=== PATIENT | male | born 1970 | race African-American/Black ===

== ENCOUNTER 2018-11-01 11:58 | Emergency (ER) | payer MEDICAID ==
[~2018-11-01] VITALS: Ht 182.9 cm; Wt 80.0 kg
[2018-11-01] MEDS ORDERED: ACETAMINOPHEN 325MG TABLET PO ONE (13:30)
[2018-11-01] MEDS ORDERED: KETOROLAC 15MG/ML VIAL IM NR (15:30)
[2018-11-01 15:41] VITALS: BP 138/82
== END 2018-11-01 15:56 | disposition home or self-care (01) ==
LOC: ER 11:58
DX: S09.8XXA Other specified injuries of head, initial encounter (principal); R07.81 Pleurodynia; M79.604 Pain in right leg; M79.641 Pain in right hand; Y08.89XA Assault by other specified means, initial encounter; Y93.9 Activity, unspecified; Y92.9 Unspecified place or not applicable
CPT/HCPCS: 71045; 73130; 73590; 99284

== ENCOUNTER 2019-04-16 09:58 | Emergency (ER) | payer MEDICAID ==
[~2019-04-16] VITALS: Ht 175.3 cm; Wt 82.0 kg
[2019-04-16 10:05] VITALS: BP 108/68
[2019-04-16] MEDS ORDERED: HYDROCODONE/ACETAMINOPHEN 5/325MG TABLET PO ONE (10:30)
== END 2019-04-16 12:08 | disposition home or self-care (01) ==
LOC: ER 09:58
DX: S09.90XA Unspecified injury of head, initial encounter (principal); S20.212A Contusion of left front wall of thorax, initial encounter; S80.02XA Contusion of left knee, initial encounter; F17.210 Nicotine dependence, cigarettes, uncomplicated; V13.4XXA Pedal cycle driver injured in collision with car, pick-up truck or van in traffic accident, initial encounter; Y93.89 Activity, other specified; Y92.488 Other paved roadways as the place of occurrence of the external cause
CPT/HCPCS: 71101; 73560; 99284